=== PATIENT | female | born 1980 | race Caucasian/White ===

== ENCOUNTER → 2024-03-17 | Outpatient (CLI) | payer BC ==
[~2024-03-17] MED LIST: BIRTH CONTROL; Bleph-10 Opth S15 ML BOTHEYES; Zithromax250 MG PO
[2024-03-24 14:49] LABS: HPV HIGH RISK BY TMA Not Detected; HPV SOURCE Cervical/Vag
== END | disposition home or self-care (01) ==
LOC: LAB SHORT 18:09 → LAB 18:09
PROVIDERS: Obstetrics & Gynecology
DX: Z01.419 Encounter for gynecological examination (general) (routine) without abnormal findings (principal)
CPT/HCPCS: 87624; G0123